=== PATIENT | female | born 1965 | race African-American/Black ===

== ENCOUNTER 2023-06-28 00:27 | Emergency (ER) | payer MEDICAID ==
[~2023-06-28] VITALS: Ht 157.5 cm; Wt 90.0 kg
[2023-06-28 00:57] VITALS: BP 126/81; PULSE 106; RESP 16; TEMP 98.6; O2SAT 98
[2023-06-28] MEDS ORDERED: IBUP-2028 MT (04:25)
== END 2023-06-28 05:03 | disposition home or self-care (01) ==
LOC: ER 00:27
DX: M54.9 Dorsalgia, unspecified (principal); E11.9 Type 2 diabetes mellitus without complications
CPT/HCPCS: 71101; 72070; 99284